=== PATIENT | male | born 1970 | race Caucasian/White ===

== ENCOUNTER → 2023-09-06 | Outpatient (CLI) | payer BC | LOC: M PAIN 08:00 | PROVIDERS: ATTEND Nurse Practitioner Family | DX: M51.16 Intervertebral disc disorders with radiculopathy, lumbar region (principal); G89.29 Other chronic pain; Z86.14 Personal history of Methicillin resistant Staphylococcus aureus infection; Z79.899 Other long term (current) drug therapy ==

== ENCOUNTER → 2023-11-25 | Outpatient (CLI) | payer BC ==
[~2023-11-25] MED LIST: ISOVUE-M 300 61% 15ML VIAL As Ordered ONE; LIDOCAINE 1% SDV 30ML VIAL As Ordered ONE; NORCO, ANEXSIA 5/325MG TABLET (HYDROcodone/ACETAMINOPHEN) As Ordered ONE; diazePAM 5MG TABLET As Ordered ONE; methylPREDNISolone SUSP 40MG/ML 1ML VIAL (DEPO MEDROL) As Ordered ONE
== END ==
LOC: M PAIN 11:30
PROVIDERS: ATTEND Anesthesiology
DX: M51.16 Intervertebral disc disorders with radiculopathy, lumbar region (principal); I10 Essential (primary) hypertension; E78.00 Pure hypercholesterolemia, unspecified; L43.9 Lichen planus, unspecified; Z79.899 Other long term (current) drug therapy
CPT/HCPCS: 62323; J1030; Q9967

== ENCOUNTER → 2023-12-20 | Outpatient (CLI) | payer BC | LOC: M PAIN 16:00 | PROVIDERS: ATTEND Nurse Practitioner Family | DX: M51.16 Intervertebral disc disorders with radiculopathy, lumbar region (principal); I10 Essential (primary) hypertension; Z79.891 Long term (current) use of opiate analgesic; Z79.899 Other long term (current) drug therapy ==

== ENCOUNTER → 2024-01-21 | Outpatient (CLI) | payer BC ==
[~2024-01-21] MED LIST changes: +dexAMETHasone 10MG/1ML VIAL PRES.FREE As Ordered ONE; -methylPREDNISolone SUSP 40MG/ML 1ML VIAL (DEPO MEDROL) As Ordered ONE
== END ==
LOC: M PAIN 10:00
PROVIDERS: ATTEND Anesthesiology
DX: M51.16 Intervertebral disc disorders with radiculopathy, lumbar region (principal); I10 Essential (primary) hypertension; E78.00 Pure hypercholesterolemia, unspecified; Z79.899 Other long term (current) drug therapy
CPT/HCPCS: 64483; J0665; J1100; Q9967

== ENCOUNTER → 2024-02-18 | Outpatient (CLI) | payer BC | LOC: M PAIN 17:30 | PROVIDERS: ATTEND Nurse Practitioner Family | DX: M51.16 Intervertebral disc disorders with radiculopathy, lumbar region (principal); M47.816 Spondylosis without myelopathy or radiculopathy, lumbar region; G89.29 Other chronic pain; I10 Essential (primary) hypertension; L43.9 Lichen planus, unspecified; E78.00 Pure hypercholesterolemia, unspecified; Z86.14 Personal history of Methicillin resistant Staphylococcus aureus infection; Z79.899 Other long term (current) drug therapy ==

== ENCOUNTER → 2024-05-03 | Outpatient (CLI) | payer BC | LOC: M PAIN 16:00 | PROVIDERS: ATTEND Anesthesiology | DX: M47.816 Spondylosis without myelopathy or radiculopathy, lumbar region (principal); M54.50 Low back pain, unspecified; M79.661 Pain in right lower leg; M79.662 Pain in left lower leg; I10 Essential (primary) hypertension; E78.00 Pure hypercholesterolemia, unspecified; L43.9 Lichen planus, unspecified; Z79.899 Other long term (current) drug therapy | CPT/HCPCS: 76000; G0463 ==

== ENCOUNTER → 2024-05-23 | Outpatient (CLI) | payer BC | LOC: M PAIN 16:00 | PROVIDERS: ATTEND Anesthesiology | DX: M51.16 Intervertebral disc disorders with radiculopathy, lumbar region (principal); Z79.899 Other long term (current) drug therapy; Z79.891 Long term (current) use of opiate analgesic ==

== ENCOUNTER → 2024-07-20 | Outpatient (CLI) | payer BC | LOC: M PAIN 13:15 | PROVIDERS: ATTEND Anesthesiology | DX: M51.16 Intervertebral disc disorders with radiculopathy, lumbar region (principal); I10 Essential (primary) hypertension; E78.00 Pure hypercholesterolemia, unspecified; Z79.899 Other long term (current) drug therapy; L43.9 Lichen planus, unspecified ==

== ENCOUNTER → 2024-08-31 | Outpatient (CLI) | payer BC | LOC: M PAIN 16:30 | PROVIDERS: ATTEND Anesthesiology | DX: M51.16 Intervertebral disc disorders with radiculopathy, lumbar region (principal); I10 Essential (primary) hypertension; E78.00 Pure hypercholesterolemia, unspecified; L43.9 Lichen planus, unspecified; Z79.899 Other long term (current) drug therapy ==